=== PATIENT | female | born 1965 | race Hispanic/Latino ===

== ENCOUNTER 2017-08-08 02:28 | Emergency (ER) | payer MEDICARE, MEDICAID ==
[2017-08-08] MEDS ORDERED: ZOFRAN ODT ONE (02:43)
[2017-08-08] MEDS ORDERED: TYLENOL ONE (02:44)
[2017-08-08] MEDS ORDERED: ZOFRAN ODT PO ONE (03:05)
[2017-08-08] MEDS ORDERED: TYLENOL PO ONE (03:05)
--- NOTE | 2017-08-08 03:39 | XRay Report ---
FINAL REPORT EXAM: XR WRIST 3+V RT HISTORY: deformity to right wrist TECHNIQUE: Four views of the left wrist were obtained. FINDINGS: There is an impacted obliquely oriented nondisplaced fracture of the distal metaphysis of the radius without angulation. The adjacent ulnar styloid process appears intact. The carpal bones appear normal. The soft tissues reveal swelling overlying the dorsal aspect of the fracture site. IMPRESSION: Impacted nondisplaced obliquely oriented fracture of the distal radial metaphysis without angulation.
[2017-08-08] MEDS ORDERED: PERCOCET 5/325 ONE (03:51)
[2017-08-08] MEDS ORDERED: PERCOCET 5/325 PO ONE (03:52)
[2017-08-08] MEDS ORDERED: XYLOCAINE 2% INFILTRATI ONE (04:07)
--- NOTE | 2017-08-08 05:31 | Emergency Department Report ---
ED Upper Extremity Inj HPI - General Chief Complaint: Extremity Injury, Upper Stated Complaint: POSSIBLE BROKEN R ARM Time Seen by Provider: 08/08/17 03:46 Source: patient Mode of arrival: Ambulatory Limitations: No Limitations (DRUNK), Altered Mental Status - History of Present Illness Initial Comments: 52 YO FEMALE GOT ENGAGED TONIGHT AND WAS CELEBRATING WITH ALCOHOLIC BEVERAGES AND FELL AFTER BEING DRUNK. SHE CAUGHT HERSELF WITH HER RIGHT HAND. SHE IS HER WITH HER FIANCEE WHO IS ALSO DRUNK. SHE C/O RIGHT HAND PAIN AND SWELLING. MD Complaint: Injury to:: right, wrist -: Sudden (FELL WHILE DRUNK) Other Extremity Injury: Hand: Right, Wrist: Right, Forearm: Right Other Injuries: none Handedness: right Severity scale (0 -10): 8 Improves With: immobilization, medication Worsens With: movement of extremity Context: fall, direct blow Associated Symptoms: nausea/vomiting - Related Data Previous Rx's Medication Instructions Recorded Last Taken Type oxyCODONE /ACETAMINOPHEN [Percocet 2 tab PO Q6HR PRN #20 tablet 08/08/17 Unknown Rx 5/325] Allergies Allergy/AdvReac Type Severity Reaction Status Date / Time latex Allergy Anaphylaxis Verified 08/08/17 02:33 morphine Allergy Anaphylaxis Verified 08/08/17 02:33 ED Review of Systems ROS: Stated complaint: POSSIBLE BROKEN R ARM Other details as noted in HPI Constitutional: denies: chills, fever Eyes: denies: eye pain, eye discharge, vision change ENT: denies: ear pain, throat pain Respiratory: denies: cough, shortness of breath, wheezing Cardiovascular: denies: chest pain, palpitations Endocrine: no symptoms reported Gastrointestinal: nausea. denies: abdominal pain, diarrhea Genitourinary: denies: urgency, dysuria, discharge Musculoskeletal: denies: back pain, joint swelling, arthralgia Skin: denies: rash, lesions Neurological: denies: headache, weakness, paresthesias Psychiatric: denies: anxiety, depression Hematological/Lymphatic: denies: easy bleeding, easy bruising ED Past Medical Hx - Past Medical History Previous Medical History?: Yes Hx Asthma: Yes Additional medical history: diverticulitis - Surgical History Past Surgical History?: No Additional Surgical History: colon resection; hysterectomy 1996 - Social History Smoking Status: Current Every Day Smoker Substance Use Type: Alcohol - Medications Home Medications: Home Medications Medication Instructions Recorded Confirmed Last Taken Type oxyCODONE /ACETAMINOPHEN [Percocet 2 tab PO Q6HR PRN #20 tablet 08/08/17 Unknown Rx 5/325] ED Physical Exam - General Limitations: No Limitations General appearance: alert, in no apparent distress - Head Head exam: Present: atraumatic, normocephalic - Eye Eye exam: Present: normal appearance - ENT ENT exam: Present: mucous membranes moist - Neck Neck exam: Present: normal inspection - Respiratory Respiratory exam: Present: normal lung sounds bilaterally. Absent: respiratory distress - Cardiovascular Cardiovascular Exam: Present: regular rate, normal rhythm. Absent: systolic murmur, diastolic murmur, rubs, gallop - GI/Abdominal GI/Abdominal exam: Present: soft, normal bowel sounds - Extremities Exam Extremities exam: Present: normal inspection, tenderness (OVER RIGHT WRIST ESPECIALLLY THE RADIAL SIDE). Absent: full ROM - Back Exam Back exam: Present: normal inspection - Neurological Exam Neurological exam: Present: alert, oriented X3 - Psychiatric Psychiatric exam: Present: normal affect, normal mood - Skin Skin exam: Present: warm, dry, intact, normal color. Absent: rash ED Course Vital Signs 08/08/17 08/08/17 02:33 03:55 Temperature 98.6 F Pulse Rate 98 H Respiratory 16 18 Rate Blood Pressure 129/82 O2 Sat by Pulse 96 Oximetry ED Medical Decision Making - Radiology Data Radiology results: report reviewed (XRAY RT WRIST: IMPACTED NONDISPLACED OBLIQUE ORIENTED FRACTURE OF THE DISTAL RADIAL METAPHYSIS WITHOUT ANGULATION), image reviewed (XRAY RIGHT FOREARM:NO FRACTURE) Critical care attestation.: If time is entered above; I have spent that time in minutes in the direct care of this critically ill patient, excluding procedure time. ED Disposition Clinical Impression: Right hand pain Distal radius fracture, right Qualifiers: Encounter type: initial encounter Fracture type: closed Fracture morphology: unspecified fracture morphology Qualified Code(s): S52.501A - Unspecified fracture of the lower end of right radius, initial encounter for closed fracture Disposition: - TO HOME OR SELFCARE Is pt being admited?: No Does the pt Need Aspirin: No Condition: Stable Instructions: Wrist Fracture in Adults (ED), Wrist Injury (ED) Additional Instructions: PLEASE CALL DR CABA'S OFFICE TODAY FOR AN APPOINTMENT FOR YOUR CAST. RETURN TO ED FOR ANY REASON Prescriptions: oxyCODONE /ACETAMINOPHEN [Percocet 5/325] 2 tab PO Q6HR PRN #20 tablet PRN Reason: Pain Referrals: PRIMARY CARE, [Primary Care Provider] - 3-5 Days BRANDEN CABA MD [Staff Physician] - 3-5 Days Time of Disposition: 06:35
--- NOTE | 2017-08-08 06:09 | XRay Report ---
FINAL REPORT EXAM: XR FOREARM RT HISTORY: FALL ON RIGHT HAND TECHNIQUE: AP and lateral views of the right forearm were submitted. FINDINGS: There is an impacted obliquely oriented nondisplaced fracture of the distal radial metaphysis without significant angulation. The adjacent ulna appears intact. The elbow joint appears well maintained. The soft tissues reveal swelling overlying the dorsal aspect of the fracture site. IMPRESSION: Acute nondisplaced obliquely oriented fracture of the distal radial metaphysis with dorsal soft tissue swelling.
[2017-08-08 06:47] VITALS: BP 130/84
== END 2017-08-08 06:48 | disposition home or self-care (01) ==
LOC: ED 02:28
DX: S52.501A Unspecified fracture of the lower end of right radius, initial encounter for closed fracture (principal); M79.641 Pain in right hand; J45.909 Unspecified asthma, uncomplicated; K57.92 Diverticulitis of intestine, part unspecified, without perforation or abscess without bleeding; F17.200 Nicotine dependence, unspecified, uncomplicated; Z98.890 Other specified postprocedural states; Z88.6 Allergy status to analgesic agent; Z91.040 Latex allergy status; X58.XXXA Exposure to other specified factors, initial encounter; Y93.9 Activity, unspecified; Y92.89 Other specified places as the place of occurrence of the external cause; Y99.9 Unspecified external cause status
CPT/HCPCS: Q0162